=== PATIENT | male | born 1975 | race Caucasian/White ===

== ENCOUNTER 2018-06-26 03:01 | Emergency (ER) | payer OTHER ==
[~2018-06-26] VITALS: Ht 195.6 cm; Wt 122.7 kg
[~2018-06-26 03:01] MED LIST: NO HOME MEDICATIONS; NORCO 325 MG-7.1 TAB PO; PEPCID 20MG TAB20 MG PO; PHENERGAN W/CO120 ML PO; PRILOSEC 20MG20 MG PO; ZOFRAN ODT4 MG PO
[2018-06-26 03:07] VITALS: TEMP 97.4
[2018-06-26 03:16] LABS: BASO % 0.6 % (0.0-2.0); EOS # 0.1 (0.0-0.7); EOS % 2.1 % (0-4.0); GRAN # 3.5 (1.4-6.5); GRAN % 52.9 % (42.2-75.2); HEMATOCRIT 40.5 % (42.0-52.0); HEMOGLOBIN 14.1 g/dl (13.5-18.0); LYMPH # 2.3 (1.2-3.4); LYMPH % 34.8 % (20.0-51.0); MEAN CELL VOLUME 89 fl (80.0-100.0); MEAN CORPUSCULAR HEMOGLOBIN 31 pg (27.0-31.0); MEAN CORPUSCULAR HGB CONC 35 g/dl (33.0-37.0); MEAN PLATELET VOLUME 10.6 fl (7.4-10.4); MONO # 0.6 (0.1-0.6); MONO % 9.3 % (1.7-9.3); PLATELET COUNT 141 K/mm3 (130-400); RED BLOOD COUNT 4.53 M/mm3 (4.20-5.60); REDCELL DISTRIBUTION WIDTH-CV 12.2 % (11.5-14.5)
[2018-06-26] MEDS ORDERED: INDERAL40 MG PO (03:26)
[2018-06-26] MEDS ORDERED: IBU600 MG PO (03:26)
[2018-06-26] MEDS ORDERED: ZANAFLEX CAPSULE4 MG (03:26)
[2018-06-26 03:27] LABS: ALANINE AMINOTRANSFERASE 55 U/L (21-72); ALBUMIN 4.2 gm/dL (3.5-5.0); ALKALINE PHOSPHATASE 86 U/L (50-136); ANION GAP 8 mmol/L (7-16); AST,SGOT 29 U/L (15-37); BILIRUBIN,TOTAL 0.8 mg/dL (0.0-1.0); BLOOD UREA NITROGEN 24 mg/dL (9-20); CALCIUM 9.2 mg/dL (8.4-10.2); CARBON DIOXIDE 22 mmol/L (22-30); CHLORIDE 108 mmol/L (98-107); CREATININE, serum 1.14 (0.66-1.25); GLUCOSE 139 mg/dL (74-106); LIPASE 104 U/L (23-300); POTASSIUM 4.3 mmol/L (3.4-5.0); SODIUM 139 mmol/L (137-145); TOTAL PROTEIN 7.1 gm/dL (6.4-8.2)
[2018-06-26] MEDS ORDERED: CATAPRES0.3 MG PO (03:28)
[2018-06-26] MEDS ORDERED: CHOLESTEROL MED (03:28)
[2018-06-26 03:40] LABS: TROPONIN-I < 0.012 ng/mL (0.000-0.035)
[2018-06-26 03:53] LABS: PROTHROMBIN TIME 11.4 SECONDS (9.7-12.8)
[2018-06-26 03:55] LABS: PARTIAL THROMBOPLASTIN TIME 29.9 SECONDS (26.0-37.0)
[2018-06-26] MEDS ORDERED: CARAFATE 1GM1 G PO (06:46)
[2018-06-26] MEDS ORDERED: PROTONIX 40MG T40 MG PO (06:46)
[2018-06-26 07:20] VITALS: BP 110/69; PULSE 54
== END 2018-06-26 07:31 | disposition home or self-care (01) ==
LOC: COL.ER 03:01
PROVIDERS: Emergency Medicine
DX: K29.70 Gastritis, unspecified, without bleeding (principal); I10 Essential (primary) hypertension; E78.5 Hyperlipidemia, unspecified; F41.9 Anxiety disorder, unspecified; Z90.49 Acquired absence of other specified parts of digestive tract
CPT/HCPCS: C9113; J2405; J7030

== ENCOUNTER 2019-03-09 08:30 | Outpatient (RCR) | payer OTHER ==
[~2019-03-09 08:30] MED LIST changes: +CARAFATE 1GM1 G PO; +CATAPRES0.3 MG PO; +CHOLESTEROL MED; +IBU600 MG PO; +INDERAL40 MG PO; +PROTONIX 40MG T40 MG PO; +ZANAFLEX CAPSULE4 MG
== END 2019-04-04 16:32 | disposition home or self-care (01) ==
LOC: WSC 08:30
DX: M54.2 Cervicalgia (principal)

== ENCOUNTER 2021-06-03 07:29 | Emergency (ER) | payer SELFPAY ==
[~2021-06-03] VITALS: Ht 195.6 cm; Wt 118.2 kg
[2021-06-03 07:34] VITALS: BP 179/92; TEMP 98.3
[2021-06-03] MEDS ORDERED: AMOXICILLIN 8751 TAB PO (08:11)
[2021-06-03 08:30] VITALS: PULSE 113
== END 2021-06-03 08:30 | disposition home or self-care (01) ==
LOC: COL.ER 07:29
DX: S61.216A Laceration without foreign body of right little finger without damage to nail, initial encounter (principal); W23.1XXA Caught, crushed, jammed, or pinched between stationary objects, initial encounter; Y99.0 Civilian activity done for income or pay